=== PATIENT | female | born 2000 | race Caucasian/White ===

== ENCOUNTER 2024-08-14 20:25 | Emergency (ER) | payer OTHER ==
[2024-08-14 20:38] VITALS: BP 123/63; PULSE 71; RESP 17; TEMP 97.2; BMI 24.0
[2024-08-14] MEDS ORDERED: FLUCONAZOLE 150 MG TABLET PO ONE ×2 (22:19→22:22)
[2024-08-14] MEDS: FLUCONAZOLE 150 MG TABLET PO ONE (22:24)
[2024-08-14 22:39] LABS: EPI CELLS >36 /uL (0-25.1); HYALINE CASTS 1 /uL (0-3.1); URINE APPEARANCE CLOUDY; URINE BACTERIA 784 /uL (0-1359); URINE BILIRUBIN NEGATIVE (NEGATIVE); URINE COLOR YELLOW; URINE GLUCOSE (UA) NEGATIVE (NEGATIVE); URINE KETONE NEGATIVE (NEGATIVE); URINE LEUK ESTERASE 2+ (NEGATIVE); URINE NITRITE NEGATIVE (NEGATIVE); URINE PROTEIN NEGATIVE (NEGATIVE); URINE UROBILINOGEN 0.2 mg/dL (0.2-1.0); URINE WBC 68 /uL (0-25.8)
[2024-08-14 22:49] LABS: HCG,QUALITATIVE URINE Negative
[2024-08-15 06:41] LABS: URINE RBC 36.9 /uL (0-23.9)
[2024-08-15 06:44] LABS: YEAST NONE SEEN (NEGATIVE)
== END 2024-08-14 22:35 | disposition home or self-care (01) ==
LOC: JERFT 20:25
DX: L29.2 Pruritus vulvae (principal); B37.31 Acute candidiasis of vulva and vagina
CPT/HCPCS: 36415; 81003; 84703; 87070; 87077; 87086; 87205; 87491; 87591; 87661; 99283-25

== ENCOUNTER 2024-11-13 05:36 | Emergency (ER) | payer OTHER ==
[2024-11-13 05:47] VITALS: BP 124/74; PULSE 81; RESP 18; TEMP 98.4; BMI 24.9
[2024-11-13 07:31] LABS: HIV INTERPRETATION NEGATIVE (NEGATIVE)
[2024-11-13] MEDS ORDERED: FAMOTIDINE 10 MG TABLET ONE (07:39)
[2024-11-13] MEDS ORDERED: SUCRALFATE 1 GM TABLET (FP) ONE (07:40)
[2024-11-13 07:42] LABS: HCV DIAGNOSTIC IN-HOUSE W/RFLX NON-REACTIVE (NONREACTIVE)
[2024-11-13] MEDS: SUCRALFATE 1 GM TABLET (FP) PO ONE (07:50)
[2024-11-13] MEDS: FAMOTIDINE 10 MG TABLET PO ONE (07:50)
[2024-11-13] MEDS ORDERED: LIDOCAINE VISCOUS 2% ORAL/TOP 15 ML UNIT-DOSE CUP ONE (09:12)
[2024-11-13] MEDS: MAG HYDROX/ALH/SMC/DPHA/LIDO 240 ML MOUTHWASH MM ONE (09:36)
[2024-11-13] MEDS: LIDOCAINE VISCOUS 2% ORAL/TOP 15 ML UNIT-DOSE CUP MM ONE (09:36)
== END 2024-11-13 09:36 | disposition home or self-care (01) ==
LOC: JER 05:36
DX: O99.511 Diseases of the respiratory system complicating pregnancy, first trimester (principal); J02.9 Acute pharyngitis, unspecified; O26.891 Other specified pregnancy related conditions, first trimester; R51.9 Headache, unspecified; O99.891 Other specified diseases and conditions complicating pregnancy; R13.10 Dysphagia, unspecified; Z3A.10 10 weeks gestation of pregnancy
CPT/HCPCS: 36415; 86803; 87070; 87389; 87637-QW; 87651; 99283-25